=== PATIENT | female | born 2000 | race Caucasian/White ===

== ENCOUNTER 2023-11-16 20:56 | Outpatient (CLI) | payer BC ==
[~2023-11-16] VITALS: Ht 172.7 cm; Wt 90.0 kg
--- NOTE | 2023-11-16 21:05 | NUR ---
Ambulatory to unit for assesment, accompanied by spouse. Oriented to room, monitor, plan of care. Pt reports ctx all day, stating "at 7pm I noticed one was actually strong." Denies Vaginal bleeding or LOF.
[2023-11-16] MEDS ORDERED: LR 1,000 ML IV PRN (21:15)
[2023-11-16 21:25] VITALS: BP 131/85; PULSE 116; TEMP 97.4
--- NOTE | 2023-11-16 21:40 | NUR ---
Repeat BP ck 134/76, HR 86. Pt turned to WL.
[2023-11-16 22:10] VITALS: BP 111/75; PULSE 76
[2023-11-16 22:35] VITALS: BP 120/81; PULSE 83
--- NOTE | 2023-11-16 22:35 | NUR ---
Repeat SVE FHT, unchanged from admission exam.
--- NOTE | 2023-11-16 22:41 | NUR ---
off monitor up to void.
[2023-11-16] MEDS ORDERED: PRENATAL TABLET PO (22:48)
--- NOTE | 2023-11-16 22:55 | NUR ---
discharge instructions reviewed with pt and apouse. Questions invited and answerred. 2300 Ambulatory off unit.
== END 2023-11-16 23:00 | disposition home or self-care (01) ==
LOC: LDRO 20:56 → LDR 21:43 → LDRO 23:00 → LDR 23:00
DX: O26.893 Other specified pregnancy related conditions, third trimester (principal); Z3A.39 39 weeks gestation of pregnancy
CPT/HCPCS: OP

== ENCOUNTER 2023-11-17 06:27 | Inpatient (IN) | payer BC ==
[~2023-11-17] VITALS: Ht 172.7 cm; Wt 90.0 kg
[2023-11-17] VITALS (28 sets, daily range): BP systolic 98–133; BP diastolic 54–88; PULSE 67–115; TEMP 98–98.8
[~2023-11-17 06:27] MED LIST: PRENATAL TABLET PO
--- NOTE | 2023-11-17 06:30 | NUR ---
39.[address] ACOSTA HERE FOR CONTRACTIONS. PT. WAS HERE OVERNIGHT AND WAS DILATED TO 1CM AND REMAINED THE SAME. PT. BACK BECAUSE CONTRACTIONS GOTTEN STRONGER. PT. STATES THAT SHE IS ANTIONETTE EVERY 3-8 MINUTES. PT. CONFIRMS A LITTLE BLOODY SHOW AND CONFIRMS MOVEMENT. PT. DENIES LEAKING OF FLUID.
[2023-11-17] MEDS ORDERED: LR 1,000 ML IV PRN (06:45)
[2023-11-17] MEDS ORDERED: LR 1,000 ML IV SCH (08:00)
[2023-11-17] MEDS ORDERED: LR & Oxytocin 500 ML IV SCH (08:00)
--- NOTE | 2023-11-17 08:17 | NUR ---
DR. ACOSTA AT BEDSIDE TO BREAK WATER. SVE OF /-2 WITH AROM OF MEMBRANES. CLEAR FLUID NOTED. VERTEX PRESENTATION.
[2023-11-17 08:43] LABS: BASO % 0.2 % (0.0-2.0); GRAN # 19.5 K/mm3 (1.4-6.5); GRAN % 89.3 % (42.2-75.2); HEMOGLOBIN 11.5 g/dl (12.5-16.0); LYMPH # 1.3 K/mm3 (1.2-3.4); LYMPH % 6.1 % (20.0-51.0); MEAN CELL VOLUME 91 fl (80.0-100.0); MEAN CORPUSCULAR HEMOGLOBIN 31 pg (27-31); MEAN CORPUSCULAR HGB CONC 34 g/dl (33.0-37.0); MONO # 0.9 K/mm3 (0.1-0.6); MONO % 3.9 % (1.7-9.3); PLATELET COUNT 162 K/mm3 (130-400); RED BLOOD COUNT 3.71 M/mm3 (4.10-5.30); REDCELL DISTRIBUTION WIDTH-CV 12.5 % (11.5-14.5)
[2023-11-17 08:48] LABS: HEMATOCRIT 33.8 % (37.0-47.0)
[2023-11-17 09:22] LABS: TRICYCLIC ANTIDEPRESS URINE NEGATIVE (NEGATIVE)
[2023-11-17] MEDS ORDERED: ROPivacaine PF 0.2% 200 ML IV ONE (09:40)
--- NOTE | 2023-11-17 09:50 | NUR ---
PT. POSITIONED FOR EPIDURAL SITTING ON EDGE OF BED, DIFFICULTY TO MAINTAIN CONTINOUOS HEART TONES. RADHA INDUSTRIAL [employer]GANIZATIONAL PSYCHOLOGIST AT BEDSIDE AND ADMINISTERS SINGLE SHOT AT 0950. PT. TOLERATES PROCEDURE WELL.
[2023-11-17] MEDS ORDERED: diphenhydrAMINE 50 MG/ML 1 ML VIAL IV PRN (10:15)
[2023-11-17] MEDS ORDERED: ePHEDrine 50 MG/10 ML VIAL IV PRN (10:15)
[2023-11-17] MEDS ORDERED: Ondansetron 4 MG/2 ML VIAL IV PRN (10:15)
[2023-11-17] MEDS ORDERED: diphenhydrAMINE 25 MG CAP PO PRN (10:15)
[2023-11-17] MEDS ORDERED: Naloxone 0.4 MG/ML VIAL IV PRN ×2 (10:15→13:00)
--- NOTE | 2023-11-17 12:31 | NUR ---
PT. COMPLETE DILATION AT 1148, UP IN STIRRUPS TO PUSH. DR. ACOSTA UPDATED. DR. ACOSTA IN ROOM FOR DELIVERY. DELIVERY OF VIABLE FEMALE INFANT AT 1231 WITH NUCHAL X2. APGARS 8,9,9. PLACENTA DELIVERS AT 1236, PITOCIN STARTED AT 333 ML/HR. DR. ACOSTA SUTURES LEFT LABIAL AND LEFT VAGINAL SIDE WALL LACERATION. PT. CLEANED AND BED PUT BACK TOGETHER, OUT OF STIRRUPS. PT. STABLE AND WILL CONTINUE TO MONITOR .
[2023-11-17] MEDS ORDERED: Mag/Al Hydrox/Simeth Susp 30 ML CUP PO PRN (13:00)
[2023-11-17] MEDS ORDERED: Witch Hazel 50% Pads Bulk TUB TP PRN (13:00)
[2023-11-17] MEDS ORDERED: oxyCODONE 5 MG TAB PO PRN (13:00)
[2023-11-17] MEDS ORDERED: Acetaminophen 500 MG TAB PO SCH (13:00)
[2023-11-17] MEDS ORDERED: Phenylephrine/Mineral Oil/Petrolatum 57 GM TUBE RC PRN (13:00)
[2023-11-17] MEDS ORDERED: Magnes Hydrox (MOM) 80 MG/ML 30 ML CUP PO PRN (13:00)
[2023-11-17] MEDS ORDERED: Ibuprofen 600 MG TAB PO SCH (13:00)
[2023-11-17] MEDS ORDERED: Measles/Mumps/Rubella Virus Vaccine Live w Diluent 0.5 ML VIAL SQ SCH (13:00)
[2023-11-17] MEDS ORDERED: Loratadine 10 MG TAB PO PRN (13:00)
[2023-11-17] MEDS ORDERED: Sennosides/Docusate 8.6-50 MG TAB PO SCH (17:00)
[2023-11-17] MEDS ORDERED: traZODone 50 MG TAB PO PRN (21:00)
[2023-11-18] VITALS: BP 104/62; PULSE 86; TEMP 97.9
[2023-11-18 08:00] VITALS: BP 111/79; PULSE 92; TEMP 98
[2023-11-18] MEDS ORDERED: MOTRIN 600600 MG/TAB PO (09:34)
[2023-11-18] MEDS ORDERED: TYLENOL 500MG500 MG PO (09:35)
--- NOTE | 2023-11-18 13:00 | NUR ---
DISCUSSED DC INSTRUCTIONS. PT COMFORTABLE WITH DC PLAN.
== END 2023-11-18 13:25 | disposition home or self-care (01) | DRG 807 ==
LOC: LDRO 06:27 → LDR 07:54 → OB 15:21
PROVIDERS: ADMIT Obstetrics & Gynecology
PROC: 10E0XZZ Delivery of Products of Conception, External Approach (ICD-10-PCS; principal; 2023-11-17)
PROC: 0KQM0ZZ Repair Perineum Muscle, Open Approach (ICD-10-PCS; 2023-11-17)
PROC: 0UQMXZZ Repair Vulva, External Approach (ICD-10-PCS; 2023-11-17)
DX: O99.344 Other mental disorders complicating childbirth (principal); Z37.0 Single live birth; Z3A.39 39 weeks gestation of pregnancy; O70.0 First degree perineal laceration during delivery; F41.9 Anxiety disorder, unspecified; K21.9 Gastro-esophageal reflux disease without esophagitis; O99.613 Diseases of the digestive system complicating pregnancy, third trimester
CPT/HCPCS: J0595; J2795; J7120